=== PATIENT | male | born 1960 | race Caucasian/White ===

== ENCOUNTER 2022-01-03 19:39 | Emergency (ER) | payer BC ==
[2022-01-03] MEDS: Loratadine 10 MG Tab PO ONE (20:23)
== END 2022-01-03 20:15 | disposition home or self-care (01) ==
LOC: VM.ED 19:39
DX: R04.0 Epistaxis (principal)
CPT/HCPCS: 99283; A9270

== ENCOUNTER 2023-09-14 16:08 | Emergency (ER) | payer OTHER, MEDICARE, BC ==
[2023-09-14] MEDS: Bacitracin Oint 1 GM U/D Packet TOP ONE (16:35)
== END 2023-09-14 16:46 | disposition home or self-care (01) ==
LOC: VM.ED 16:08 → SUPCPDRO 16:08 → VM.ED 16:46
DX: S71.152A Open bite, left thigh, initial encounter (principal); S81.051A Open bite, right knee, initial encounter; W54.0XXA Bitten by dog, initial encounter
CPT/HCPCS: 99283